=== PATIENT | male | born 1940 | race Hispanic/Latino ===

== ENCOUNTER 2022-06-27 18:02 | Inpatient (IN) | payer MEDICARE ==
[~2022-06-27] VITALS: Ht 167.6 cm; Wt 84.0 kg
[~2022-06-27 18:02] MED LIST: ASPI-556 PO; CARV3.12 PO; FURO20TA4 PO; GABA-529 PO; OMEP40CA21 PO; ROSU20TA31 PO; SPIR100T5 PO
[2022-06-27] MEDS ORDERED: 0.9%NACL 1000ML 2,000 ML IV ONE (19:30)
[2022-06-27] MEDS ORDERED: AZITHROMYCIN 500MG+NS 250ML IVPB SCH (20:00)
[2022-06-27] MEDS ORDERED: CEFTRIAXONE 1G VIAL IVP ONE (20:00)
[2022-06-27 20:02] LABS: BASOPHILS % (AUTO) 0.4 % (0.0-5.0); HEMATOCRIT 44.2 % (42-54); MEAN CORPUSCULAR HEMOGLOBIN 30.7 pg (27.0-33.0); MEAN CORPUSCULAR HGB CONC 33.5 g/dL (32.0-36.0); MEAN CORPUSCULAR VOLUME 91.7 fL (79-99); MONOCYTES % (AUTO) 7.4 % (3.0-13.0); NEUTROPHILS % (AUTO) 86.2 % (40.0-77.0); PLATELET COUNT (AUTO) 81 K/uL (130-400); RED BLOOD CELL COUNT(AUTO) 4.82 MIL/uL (4.50-6.20); RED CELL DISTRIBUTION WIDTH 14.6 % (11.0-15.5); WHITE BLOOD COUNT (AUTO) 28.6 K/uL (4.8-10.8)
[2022-06-27 20:05] LABS: APPEARANCE,URINE CLOUDY (CLEAR); BILIRUBIN,URINE LARGE mg/dL (NEGATIVE); COLOR,URINE RED (YELLOW); GLUCOSE, URINE (UA) 100 mg/dL (NEGATIVE); KETONES,URINE 15 mg/dL (NEGATIVE); LEUKOCYTE ESTERASE ,URINE MODERATE Leu/uL (NEGATIVE); NITRATE,URINE POSITIVE (NEGATIVE); OCCULT BLOOD,URINE MODERATE (NEGATIVE); PROTEIN,URINE 100 mg/dL (NEGATIVE)
[2022-06-27 20:12] LABS: CREATININE 1.9 mg/dL (0.5-1.5); POTASSIUM 4.5 mmol/L (3.5-5.1)
[2022-06-27 20:22] LABS: ALBUMIN 2.6 g/dL (3.5-5.0); TOTAL PROTEIN, SERUM 5.9 g/dL (6.0-8.3)
[2022-06-27 20:41] LABS: BACTERIA,URINE Moderate /HPF (None Seen); MUCUS,URINE Few LPF (None Seen); SQUAMOUS EPITHELIAL CELL,UR Few /HPF (0-2); TRANSITIONAL EPI CELLS,URINE Few /HPF (None Seen); WBC,URINE 51-100 /HPF (0-1)
[2022-06-27] MEDS ORDERED: ASPIRIN 325MG TAB ONE (21:46)
[2022-06-27] MEDS ORDERED: DOXYCYCLINE 100MG+NS 250ML 250 ML IV ONE (21:49)
[2022-06-27] MEDS: 0.9%NACL 1000ML 1,000 ML IV SCH (22:00)
[2022-06-27] MEDS ORDERED: ENOXAPARIN SODIUM 80 MG/0.8 ML SQ SCH (22:00)
[2022-06-27] MEDS ORDERED: MORPHINE 2 MG SYG IVP PRN (22:00)
[2022-06-28] VITALS (10 sets, daily range): BP systolic 95–132; BP diastolic 50–74
[2022-06-28] MEDS ORDERED: ACETAMINOPHEN 325 MG TAB PO PRN ×2 (04:30)
[2022-06-28] MEDS ORDERED: ONDANSETRON 4MG INJ IVP PRN (04:30)
[2022-06-28] MEDS: 0.9%NACL 1000ML 1,000 ML IV SCH ×2 (06:00→15:21)
[2022-06-28] MEDS: INSULIN HUMULIN R 100 UNIT/ML 3ML SQ SCH ×4 (07:30→20:14)
[2022-06-28] MEDS ORDERED: ASPIRIN 325MG EC TAB PO SCH (09:00)
[2022-06-28] MEDS ORDERED: ASPIRIN 81 MG EC TAB PO SCH (09:00)
[2022-06-28 09:11] LABS: BASOPHILS % (AUTO) 0.4 % (0.0-5.0); HEMATOCRIT 41.7 % (42-54); LYMPHOCYTES % (AUTO) 4.6 % (21.0-51.0); MEAN CORPUSCULAR HEMOGLOBIN 30.8 pg (27.0-33.0); MEAN CORPUSCULAR HGB CONC 33.6 g/dL (32.0-36.0); MEAN CORPUSCULAR VOLUME 91.9 fL (79-99); MONOCYTES % (AUTO) 4.5 % (3.0-13.0); NEUTROPHILS % (AUTO) 89.7 % (40.0-77.0); PLATELET COUNT (AUTO) 56 K/uL (130-400); RED BLOOD CELL COUNT(AUTO) 4.54 MIL/uL (4.50-6.20); RED CELL DISTRIBUTION WIDTH 14.8 % (11.0-15.5); WHITE BLOOD COUNT (AUTO) 19.5 K/uL (4.8-10.8)
[2022-06-28 09:52] LABS: B-TYPE NATRIURETIC PEPTIDE 257 pg/mL (0-100)
[2022-06-28] MEDS: FAMOTIDINE 20MG TAB PO SCH (10:03)
[2022-06-28] MEDS: DOXYCYCLINE 100MG+NS 250ML IV SCH ×2 (10:03→21:32)
[2022-06-28 10:10] LABS: ALBUMIN 2.3 g/dL (3.5-5.0); CREATININE 1.5 mg/dL (0.5-1.5); MAGNESIUM 1.6 mg/dL (1.80-2.40); PHOSPHORUS 2.7 mg/dL (2.5-4.9); POTASSIUM 4.1 mmol/L (3.5-5.1); THYROID STIMULATING HORMONE 1.08 uIU/mL (0.36-3.74); TOTAL PROTEIN, SERUM 5.4 g/dL (6.0-8.3)
[2022-06-28] MEDS ORDERED: LIDOCAINE HCL-MPF 1% 2ML VIAL IV PRN (11:00)
[2022-06-28] MEDS ORDERED: POTASSIUM CHLORIDE 20MEQ/100ML 100 ML IV PRN (11:00)
[2022-06-28] MEDS ORDERED: KCL 20 MEQ ERTAB PO PRN (11:00)
[2022-06-28] MEDS ORDERED: POTASSIUM CHLORIDE 10MEQ/100ML 10 MEQ/100 ML ML IV PRN (11:00)
[2022-06-28] MEDS ORDERED: POTASSIUM CHLORIDE 10 MEQ/NS 50ML IV PRN ×2 (11:30)
[2022-06-28] MEDS ORDERED: POTASSIUM CHLORIDE 10MEQ/100ML 100 ML IV SCH (11:30)
[2022-06-28] MEDS: MAGNESIUM 2GM PREMIX 50ML 50 ML IV PRN (14:50)
[2022-06-28] MEDS: CEFTRIAXONE 1G VIAL IVP SCH (21:32)
[2022-06-29] VITALS (7 sets, daily range): BP systolic 102–133; BP diastolic 58–74
[2022-06-29] MEDS: 0.9%NACL 1000ML 1,000 ML IV SCH (03:58)
[2022-06-29 04:21] LABS: BASOPHILS % (AUTO) 0.3 % (0.0-5.0); EOSINOPHILS % (AUTO) 0.7 % (0.0-8.0); HEMATOCRIT 38.6 % (42-54); LYMPHOCYTES % (AUTO) 7.9 % (21.0-51.0); MEAN CORPUSCULAR HEMOGLOBIN 30.5 pg (27.0-33.0); MEAN CORPUSCULAR HGB CONC 33.4 g/dL (32.0-36.0); MEAN CORPUSCULAR VOLUME 91.3 fL (79-99); MONOCYTES % (AUTO) 6.9 % (3.0-13.0); NEUTROPHILS % (AUTO) 83.4 % (40.0-77.0); PLATELET COUNT (AUTO) 55 K/uL (130-400); RED BLOOD CELL COUNT(AUTO) 4.23 MIL/uL (4.50-6.20); RED CELL DISTRIBUTION WIDTH 14.9 % (11.0-15.5); WHITE BLOOD COUNT (AUTO) 11.9 K/uL (4.8-10.8)
[2022-06-29 04:37] LABS: CREATININE 0.9 mg/dL (0.5-1.5); MAGNESIUM 1.7 mg/dL (1.80-2.40); POTASSIUM 3.3 mmol/L (3.5-5.1); TOTAL PROTEIN, SERUM 4.9 g/dL (6.0-8.3)
[2022-06-29] MEDS: MAGNESIUM 2GM PREMIX 50ML 50 ML IV PRN (05:14)
[2022-06-29] MEDS: POTASSIUM CHLORIDE 10% ELIXIR 20 MEQ/15 ML UDCUP PO PRN (05:14)
[2022-06-29] MEDS: INSULIN HUMULIN R 100 UNIT/ML 3ML SQ SCH ×4 (07:30→20:07)
[2022-06-29] MEDS: CARVEDILOL 3.125 MG TABLET PO SCH ×2 (08:46→21:08)
[2022-06-29] MEDS: FAMOTIDINE 20MG TAB PO SCH (08:46)
[2022-06-29] MEDS: DOXYCYCLINE 100MG+NS 250ML IV SCH ×2 (08:47→21:08)
[2022-06-29] MEDS: ARTIFICAL TEARS SOL 15 ML OU SCH ×2 (16:07→21:16)
[2022-06-29] MEDS: CEFTRIAXONE 1G VIAL IVP SCH (21:08)
[2022-06-29] MEDS: NYSTATIN 15 GM OINT TP SCH (21:08)
[2022-06-30 04:35] LABS: BASOPHILS % (AUTO) 0.4 % (0.0-5.0); EOSINOPHILS % (AUTO) 3.6 % (0.0-8.0); HEMATOCRIT 37.3 % (42-54); LYMPHOCYTES % (AUTO) 11.7 % (21.0-51.0); MEAN CORPUSCULAR HEMOGLOBIN 30.6 pg (27.0-33.0); MEAN CORPUSCULAR VOLUME 92.8 fL (79-99); MONOCYTES % (AUTO) 7.8 % (3.0-13.0); NEUTROPHILS % (AUTO) 75.8 % (40.0-77.0); PLATELET COUNT (AUTO) 54 K/uL (130-400); RED BLOOD CELL COUNT(AUTO) 4.02 MIL/uL (4.50-6.20); WHITE BLOOD COUNT (AUTO) 9.1 K/uL (4.8-10.8)
[2022-06-30 04:45] VITALS: BP 110/58
[2022-06-30 04:50] LABS: ALBUMIN 1.9 g/dL (3.5-5.0); CREATININE 0.9 mg/dL (0.5-1.5); POTASSIUM 3.6 mmol/L (3.5-5.1); TOTAL PROTEIN, SERUM 4.6 g/dL (6.0-8.3)
[2022-06-30] MEDS: INSULIN HUMULIN R 100 UNIT/ML 3ML SQ SCH ×4 (05:02→21:00)
[2022-06-30] MEDS: POTASSIUM CHLORIDE 10% ELIXIR 20 MEQ/15 ML UDCUP PO PRN (05:39)
[2022-06-30 07:00] VITALS: BP 142/77
[2022-06-30] MEDS: DOXYCYCLINE 100MG+NS 250ML IV SCH ×2 (10:25→21:38)
[2022-06-30] MEDS: FAMOTIDINE 20MG TAB PO SCH (10:25)
[2022-06-30] MEDS: CARVEDILOL 3.125 MG TABLET PO SCH ×2 (10:25→21:36)
[2022-06-30] MEDS: ARTIFICAL TEARS SOL 15 ML OU SCH ×3 (10:26→21:36)
[2022-06-30] MEDS: NYSTATIN 15 GM OINT TP SCH ×3 (10:26→21:37)
[2022-06-30 11:00] VITALS: BP 130/72
[2022-06-30 16:00] VITALS: BP 144/72
[2022-06-30 19:09] VITALS: BP 139/82
[2022-06-30] MEDS: CEFTRIAXONE 1G VIAL IVP SCH (21:37)
[2022-07-01 00:09] VITALS: BP_SYST 103; BP_SYST 115; BP_DIAS 58; BP_DIAS 64
[2022-07-01 03:48] LABS: BASOPHILS % (AUTO) 0.5 % (0.0-5.0); EOSINOPHILS % (AUTO) 3.5 % (0.0-8.0); HEMATOCRIT 38.4 % (42-54); LYMPHOCYTES % (AUTO) 14.2 % (21.0-51.0); MEAN CORPUSCULAR HEMOGLOBIN 30.9 pg (27.0-33.0); MEAN CORPUSCULAR HGB CONC 33.6 g/dL (32.0-36.0); MEAN CORPUSCULAR VOLUME 92.1 fL (79-99); MONOCYTES % (AUTO) 9.2 % (3.0-13.0); NEUTROPHILS % (AUTO) 72.1 % (40.0-77.0); PLATELET COUNT (AUTO) 68 K/uL (130-400); RED BLOOD CELL COUNT(AUTO) 4.17 MIL/uL (4.50-6.20); WHITE BLOOD COUNT (AUTO) 8.3 K/uL (4.8-10.8)
[2022-07-01 04:05] LABS: ALBUMIN 1.9 g/dL (3.5-5.0); CREATININE 0.9 mg/dL (0.5-1.5); MAGNESIUM 1.6 mg/dL (1.80-2.40); TOTAL PROTEIN, SERUM 4.6 g/dL (6.0-8.3)
[2022-07-01] MEDS: INSULIN HUMULIN R 100 UNIT/ML 3ML SQ SCH ×4 (06:26→21:00)
[2022-07-01 07:00] VITALS: BP 142/77
[2022-07-01] MEDS: FAMOTIDINE 20MG TAB PO SCH (08:45)
[2022-07-01] MEDS: CARVEDILOL 3.125 MG TABLET PO SCH ×2 (08:46→21:20)
[2022-07-01] MEDS: DOXYCYCLINE 100MG+NS 250ML IV SCH ×2 (08:46→21:21)
[2022-07-01] MEDS: ARTIFICAL TEARS SOL 15 ML OU SCH ×3 (08:49→21:22)
[2022-07-01] MEDS: NYSTATIN 15 GM OINT TP SCH ×3 (08:50→21:22)
[2022-07-01 11:00] VITALS: BP 146/84
[2022-07-01 16:00] VITALS: BP 153/83
[2022-07-01 19:09] VITALS: BP 153/84
[2022-07-01] MEDS: ATORVASTATIN 20 MG TABLET PO SCH (21:15)
[2022-07-01] MEDS: CEFTRIAXONE 1G VIAL IVP SCH (21:15)
[2022-07-02 00:09] VITALS: BP 120/72
[2022-07-02 03:09] VITALS: BP 104/70
[2022-07-02] MEDS: INSULIN HUMULIN R 100 UNIT/ML 3ML SQ SCH ×4 (06:44→21:00)
[2022-07-02 08:00] VITALS: BP 151/71
[2022-07-02] MEDS: FAMOTIDINE 20MG TAB PO SCH (08:45)
[2022-07-02] MEDS: CARVEDILOL 3.125 MG TABLET PO SCH ×2 (08:45→20:17)
[2022-07-02] MEDS: DOXYCYCLINE 100MG+NS 250ML IV SCH ×2 (08:45→20:17)
[2022-07-02] MEDS: ARTIFICAL TEARS SOL 15 ML OU SCH ×3 (08:45→20:19)
[2022-07-02] MEDS: NYSTATIN 15 GM OINT TP SCH ×3 (08:54→20:19)
[2022-07-02 11:48] VITALS: BP 141/81
[2022-07-02 16:05] VITALS: BP 144/87
[2022-07-02 19:57] VITALS: BP 148/78
[2022-07-02] MEDS: ATORVASTATIN 20 MG TABLET PO SCH (20:17)
[2022-07-02] MEDS: CEFTRIAXONE 1G VIAL IVP SCH (20:17)
[2022-07-03 00:33] VITALS: BP 121/72
[2022-07-03 04:08] VITALS: BP 118/62
[2022-07-03] MEDS: INSULIN HUMULIN R 100 UNIT/ML 3ML SQ SCH ×4 (06:09→20:33)
[2022-07-03 08:06] VITALS: BP 150/83
[2022-07-03] MEDS: NYSTATIN 15 GM OINT TP SCH ×3 (09:03→20:35)
[2022-07-03] MEDS: CARVEDILOL 3.125 MG TABLET PO SCH ×2 (09:04→20:34)
[2022-07-03] MEDS: ARTIFICAL TEARS SOL 15 ML OU SCH ×3 (09:04→20:35)
[2022-07-03] MEDS: FAMOTIDINE 20MG TAB PO SCH (09:04)
[2022-07-03] MEDS: DOXYCYCLINE 100MG+NS 250ML IV SCH ×2 (09:05→20:34)
[2022-07-03 11:50] VITALS: BP 143/84
[2022-07-03 16:00] VITALS: BP 145/75
[2022-07-03] MEDS: CEFTRIAXONE 1G VIAL IVP SCH (20:34)
[2022-07-03] MEDS: ATORVASTATIN 20 MG TABLET PO SCH (20:34)
[2022-07-03 20:45] VITALS: BP 149/84
[2022-07-04 00:16] VITALS: BP 111/64
[2022-07-04 03:48] VITALS: BP 138/80
[2022-07-04] MEDS: INSULIN HUMULIN R 100 UNIT/ML 3ML SQ SCH ×2 (06:50→11:30)
[2022-07-04 08:00] VITALS: BP 143/81
[2022-07-04] MEDS: DOXYCYCLINE 100MG+NS 250ML IV SCH (08:39)
[2022-07-04] MEDS: ARTIFICAL TEARS SOL 15 ML OU SCH ×2 (08:39→14:33)
[2022-07-04] MEDS: FAMOTIDINE 20MG TAB PO SCH (08:40)
[2022-07-04] MEDS: NYSTATIN 15 GM OINT TP SCH ×2 (08:40→14:33)
[2022-07-04 08:41] VITALS: BP 143/81
[2022-07-04] MEDS: CARVEDILOL 3.125 MG TABLET PO SCH (08:41)
[2022-07-04] MEDS ORDERED: IPRATROPIUM/ALBUTEROL SULFATE 3 ML SOLUTION IH SCH (12:00)
== END 2022-07-04 17:15 | DRG 871 ==
LOC: EDH 18:02 → EDHIP 21:32 → 2BH 06-28 08:13 → 2DH 06-28 23:29 → 3DH 07-03 17:36 → UNDODISIN 07-04 10:40
PROVIDERS: ADMIT Internal Medicine Infectious Disease; ATTEND Internal Medicine Infectious Disease
DX: A41.50 Gram-negative sepsis, unspecified (principal); I21.4 Non-ST elevation (NSTEMI) myocardial infarction; J18.9 Pneumonia, unspecified organism; R65.21 Severe sepsis with septic shock; L97.919 Non-pressure chronic ulcer of unspecified part of right lower leg with unspecified severity; L97.829 Non-pressure chronic ulcer of other part of left lower leg with unspecified severity; N39.0 Urinary tract infection, site not specified; N17.9 Acute kidney failure, unspecified; I50.30 Unspecified diastolic (congestive) heart failure; M62.82 Rhabdomyolysis; Z20.822 Contact with and (suspected) exposure to COVID-19; I11.0 Hypertensive heart disease with heart failure; D69.6 Thrombocytopenia, unspecified; L89.220 Pressure ulcer of left hip, unstageable; E66.9 Obesity, unspecified; K21.9 Gastro-esophageal reflux disease without esophagitis; E11.51 Type 2 diabetes mellitus with diabetic peripheral angiopathy without gangrene; E78.00 Pure hypercholesterolemia, unspecified; I25.10 Atherosclerotic heart disease of native coronary artery without angina pectoris; I35.1 Nonrheumatic aortic (valve) insufficiency; L30.4 Erythema intertrigo; N50.89 Other specified disorders of the male genital organs; Z74.01 Bed confinement status; Z79.899 Other long term (current) drug therapy; Z83.3 Family history of diabetes mellitus; Z99.3 Dependence on wheelchair; Z68.29 Body mass index [BMI] 29.0-29.9, adult
CPT/HCPCS: 36415; 71045; 76705; 80053; 80069; 81001; 82550; 82948; 83605; 83735; 83874; 83880; 84443; 84484; 85025; 85378; 87040; 87077; 87088; 87186; 87635; 87804; 93005; 93306; 93356; 93970; 94640; 94664; 97039; 99291; C9803; G0378; J0456; J0696; J1650; J1815; J2405; J3475; J3490; J7030

== ENCOUNTER → 2022-09-04 | Outpatient (CLI) | payer MEDICARE ==
[~2022-09-04] MED LIST changes: -ASPI-556 PO; -FURO20TA4 PO; -GABA-529 PO; -OMEP40CA21 PO; -ROSU20TA31 PO; -SPIR100T5 PO
[2022-09-04 12:38] LABS: BASOPHILS % (AUTO) 0.2 % (0.0-5.0); EOSINOPHILS % (AUTO) 0.1 % (0.0-8.0); HEMATOCRIT 43.5 % (42-54); LYMPHOCYTES % (AUTO) 10.2 % (21.0-51.0); MEAN CORPUSCULAR HEMOGLOBIN 29.8 pg (27.0-33.0); MEAN CORPUSCULAR HGB CONC 32.6 g/dL (32.0-36.0); MEAN CORPUSCULAR VOLUME 91.2 fL (79-99); MONOCYTES % (AUTO) 5.7 % (3.0-13.0); NEUTROPHILS % (AUTO) 83.5 % (40.0-77.0); PLATELET COUNT (AUTO) 85 K/uL (130-400); RED BLOOD CELL COUNT(AUTO) 4.77 MIL/uL (4.50-6.20); RED CELL DISTRIBUTION WIDTH 14.3 % (11.0-15.5)
[2022-09-04 12:49] LABS: ALBUMIN 2.9 g/dL (3.5-5.0); BILIRUBIN,DIRECT 0.6 mg/dL (0.0-0.3); CREATININE 0.9 mg/dL (0.5-1.5); POTASSIUM 3.9 mmol/L (3.5-5.1); TOTAL PROTEIN, SERUM 6.5 g/dL (6.0-8.3)
== END | disposition home or self-care (01) ==
LOC: LAB 11:57
PROVIDERS: ATTEND Internal Medicine
DX: A41.9 Sepsis, unspecified organism (principal); I21.4 Non-ST elevation (NSTEMI) myocardial infarction
CPT/HCPCS: 36415; 80048; 80061; 80076; 85025

== ENCOUNTER 2025-03-17 19:29 | Emergency (ER) | payer MEDICARE ==
[~2025-03-17] VITALS: Ht 167.6 cm; Wt 70.3 kg
[~2025-03-17 19:29] MED LIST changes: +ASPI-1005 PO; -CARV3.12 PO; +DORZ10DR10 OP; +FURO20TA4 PO; +LOSA1TAB42 PO; +OMEP40CA21 PO; +ROSU40TA88 PO
--- NOTE | 2025-03-17 19:54 | ERN ---
ED Note History of Present Illness Stated Complaint: R HIP PAIN S/P FALL, -LOC, -ANTICOAGULANTS Chief Complaint: Hip Pain/Injury Time Seen by MD: 19:32 Dictation: This is an 85-year-old male who was brought in to the emergency room via EMS by patient's daughter and son. Apparently for the past 35 years he has been in a wheelchair and he can transfer himself to the bed and basically moves around in the house using the wheelchair. This is a motorized wheelchair. lately he has had many falls and apparently this afternoon he had a fall when he tried to transfer himself from the wheelchair to the toilet he did not sustain any head injury he did not lose consciousness it was mostly sliding and sitting on his rear. The family noted that he was unable to bear the weight due to right hip pain and they brought him to the ER for further evaluation. As I described above he has been disabled and bed ridden and by 3:00 p.m. he is usually supine in bed. 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 He has a chronic issue with constipation as well as due to his disability he does wear a diaper. He lives at home with his and the children check on them Temperature 98.9 pulse 70 respirations 16 blood pressure 147/79 with a pulse oximetry of 94% on room air Known history of hypertension, hyperlipidemia, history of an GA, congestive heart failure, umbilical hernia Allergies: Coded Allergies: No Known Drug Allergies (Verified Allergy, Severe, 11/09/16) Home Meds Active Scripts Tramadol Hcl (Tramadol HCl) 50 Mg Tablet, 50 MG PO BID for hip and back pain for 7 Days, #14 TAB 0 Refills Prov:JOHNY CAN MD 03/17/25 Reported Medications Dorzolamide HCl/Timolol Maleat (Dorzolamide-Timolol Eye Drops) 10 Ml Drops, 10 ML OP DAILY, DROP 11/06/22 Losartan/Hydrochlorothiazide (Losartan-Hctz 100-12.5 mg Tab) 1 Each Tablet, 1 EACH PO DAILY, TAB 11/06/22 Aspirin (ASPIRIN 81MG CHEW TAB) 81 Mg Tab.chew, 81 MG PO DAILY, TAB.CHEW 09/11/22 Furosemide (Furosemide) 20 Mg Tablet, 20 MG PO DAILY, TAB 09/11/22 Rosuvastatin Calcium (Rosuvastatin Calcium) 40 Mg Tablet, 40 MG PO DAILY, TAB 09/11/22 Omeprazole (Omeprazole) 40 Mg Capsule.dr, 40 MG PO DAILY, CAP 09/11/22 Past Medical History Past Medical History: CHF, High Cholesterol, Hypertension, GA, Other Additional Past Medical Hx: UMBILICAL HERNIA Surgical History: Other Surgical History Other: ABDOMEN SURERY Social History: Lives with family, Other RN Note Reviewed/Agreed w/PFSH: Yes Review of System Dictation Constitutional: Negative for fever,chills, and weight loss Eyes: Negative for injury, pain,redness, and discharge ENT: Negative for injury,pain or swelling Cardiovascular: Negative for chest pain, palpitations, and edema Respiratory: Negative for shortness of breath, cough, and wheezing, Abdomen/GI: Negative for abdominal pain, nausea, vomiting, diarrhea, and constipation Back: Negative for injury and pain : Negative for injury, bleeding and discharge MS/Extremity: Negative for injury and deformity positive for right hip pain and lower back pain Skin: Negative for rash, and discoloration Neuro: Negative for headache, weakness, numbness, tingling, and seizure Psych: Negative for suicide ideation, homicidal ideation, and hallucinations Initial Vital Sign VS Vital Signs Date Time Temp Pulse Resp B/P (MAP) Pulse Ox O2 Delivery O2 Flow Rate FiO2 03/17/25 19:30 98.4 70 16 147/79 94 Room Air 0 03/17/25 19:46 21 Physical Exam Dictation General: awake, alert, NAD Head/Face: Normocephalic, atraumatic Eyes: PERRL, EOMI, vision at baseline ENT: oral cavity clear, TMs clear, no signs of infection Neck: Trachea midline, supple, no nuchal rigidity Cardiovascular: RRR, normal S1/S2, No MRGs, no JVD Respiratory: CTAB, no respiratory distress, No rales or wheezes Abdomen: Soft, non-tender, non-distended, normal bowel sounds, no guarding or rebound. Skin: Warm, dry, normal turgor, no rash very small superficial skin breakdown bilaterally at the ischial tuberosity sites. Tiny ulcers also on scrotum MS/Extremity: Pulses equal, no cyanosis, neurovascular intact, lower extremity strength is 3/5-this is chronic no external rotation or obvious deformity of the joint noted Neuro: COAx4, GCS 15, strength 5/5, CN 2-12 intact, normal cerebellar exam, Psych: Normal behavior, mood, and affect normal Extremities-trace edema without any palpable cords, Homans sign is negative severe hyperpigmentation of the right lower extremity Skin Results (Laboratory/Radiology) Laboratory/Radiology Laboratory Tests Test 03/17/25 20:14 White Blood Count 6.0 K/uL (4.8-10.8) Red Blood Count 4.68 MIL/uL (4.50-6.20) Hemoglobin 14.4 g/dL (14.0-18.0) Hematocrit 43.9 % (42-54) Mean Corpuscular Volume 93.8 fL (79-99) Mean Corpuscular Hemoglobin 30.8 pg (27.0-33.0) Mean Corpuscular Hemoglobin Concent 32.8 g/dL (32.0-36.0) Red Cell Distribution Width 15.1 % (11.0-15.5) Platelet Count 93 K/uL (130-400) L Mean Platelet Volume 12.2 fL (7.5-10.5) H Immature Granulocyte % (Auto) 0.3 % (0-1) Neutrophils (%) (Auto) 68.1 % (40.0-77.0) Lymphocytes (%) (Auto) 20.4 % (21.0-51.0) L Monocytes (%) (Auto) 8.0 % (3.0-13.0) Eosinophils (%) (Auto) 2.5 % (0.0-8.0) Basophils (%) (Auto) 0.7 % (0.0-5.0) Neutrophils # (Auto) 4.1 K/uL (1.8-7.7) Lymphocytes # (Auto) 1.2 K/uL (1.0-4.8) Monocytes # (Auto) 0.5 K/uL (0.1-1.0) Eosinophils # (Auto) 0.15 K/uL (0.00-0.70) Basophils # (Auto) 0.04 K/uL (0.00-0.20) Absolute Immature Granulocyte (auto 0.02 K/uL (0-1) Nucleated Red Blood Cells 0.0 % (0.0-0.19) Sodium Level 143 mmol/L (136-145) Potassium Level 4.1 mmol/L (3.5-5.1) Chloride Level 108 mmol/L (101-111) Carbon Dioxide Level 30 mmol/L (21-32) Blood Urea Nitrogen 19 mg/dL (7-18) H Creatinine 0.8 mg/dL (0.5-1.3) Glomerular Filtration Rate Calc 87 mL/min (>90) Random Glucose 106 mg/dL (70-105) H Total Calcium 8.4 mg/dL (8.5-10.1) L Total Creatine Kinase 19 U/L (21-232) #L Troponin I High Sensitivity 7.4 ng/L (4-75) Labs Reviewed?: Yes X-RAY Comment: REASON: fall unable to bear wt ORDERING PHYSICIAN: JOHNY CAN MD PROCEDURE: HIP U 2V R - HIP UNILAT 2-3VW RIGHT HIP UNILAT 2-3VW RIGHT HISTORY: Status post fall COMPARISON: None TECHNIQUE: 3 images of the right hip were obtained. FINDINGS: There is no acute displaced fracture or dislocation. Right hip joint space narrowing is seen. Degenerative changes are seen. IMPRESSION: 1. Findings as described above. DICTATED BY: TANI SWEENEY MD DATE: 03/17/252025 ELECTRONICALLY SIGNED BY: TANI SWEENEY MD DATE: 03/17/25 203 ED Course ED Course Orders Procedure Category Date Status Time Cardiac Panel LAB 03/17/25 Complete 19:45 Cbc With Differential LAB 03/17/25 Complete 19:45 Basic Metabolic Panel LAB 03/17/25 Complete 19:45 Hip Unilat 2-3vw Right RAD 03/17/25 Resulted 19:45 Acetaminophen 325 Tab PHA 03/17/25 Complete (Tylenol 325mg Tab 21:00 Morphine 2mg Syg PHA 03/17/25 Complete (Morphine 2mg Syg) 21:00 Current Medications Medications (Trade) Dose Ordered Sig/Brandi Route PRN Reason Start Time Stop Time Status Last Admin Dose Admin Acetaminophen (TYLenol 325MG TAB) 650 mg ONCE ONCE PO 03/17/25 21:00 03/17/25 21:01 DC Morphine Sulfate (morPHINE 2MG SYG) 2 mg ONCE ONCE IVP 03/17/25 21:00 03/17/25 21:01 DC 03/17/25 22:03 Vital Signs Date Time Temp Pulse Resp B/P (MAP) Pulse Ox O2 Delivery O2 Flow Rate FiO2 03/18/25 00:02 98.4 70 18 146/74 98 Room Air* 0 21 03/17/25 22:37 98.2 67 18 150/85 98 Room Air* 0 21 03/17/25 19:46 67 18 148/81 99 Room Air* 0 03/17/25 19:30 98.4 70 16 147/79 94 Room Air 0 We will perform diagnostic labs, advanced imaging and administer medications according to the patient's complaint. Once the results are available, will review and personally interpreted the labs to rule out any acute life-threatenin g emergency the trach require immediate intervention and treatment. I will then re-evaluate the patient after treatment and diagnostic exams have return to determine whether the patient requires any further testing, can safely be discharged home or need further admission to hospital for additional treatment and evaluation. 8:30 p.m. Reviewed the labs-CBC is with a normal limits BNP 7 relatively normal BUN and creatinine are 19 and 0.8 8:53 p.m. hip x-rays reviewed-narrowing of the right hip joint but no obvious fracture was visible. 9:14 p.m. patient's son Andre came by to visit the patient. I had a long discussion with the patient both the children about his chronic bedridden state and at this point patient needs more of pain management and comfort as he would not be a candidate for aggressive surgical intervention of back. They indicated that their mother did not want him admitted and a trial of pain medication was given. Also instructed them to apply triple antibiotic cream to the tiny areas of skin breakdown and cushion his wheelchair. I have also given a referral to pain management for his chronic pain. Medical Decision Making MDM MDM: Differential diagnosis: Fracture of the hip, contusion, sprain, severe arthritis, muscle weakness due to disuse Rationale: Tests considered and ordered secondary to shared decision making include: Previous outside records reviewed: Old ER visits. Risk of complication and/or morbidity or mortality of patient management: None Medications-Per medication reconciliation Need for hospitalization: Patient does not meet criteria for hospitalization. Need for emergency major/minor surgery: No There are no social concerns with this patient. Prescription drug management Prescriptions will include symptomatic care Patient's prior external medical records from other ER visits were reviewed by me as indicated. Prior testing and results from previous visits were reviewed. Prior tests were taken into account with medical decision making and resource utilization, independent historian/historians were used to obtain complete medical history. I independently interpreted the test that were performed, results were reviewed by me and considered findings on radiology if ordered. Medical management and examination interpretation discussions were had by me with other qualified healthcare professionals as indicated for the patient's care. Problem List Problem List: (1) Right hip pain (2) Degenerative joint disease of right hip DX & DISP Disposition: Discharge Departure Impression: Primary Impression: Right hip pain Additional Impression: Degenerative joint disease of right hip Condition: Stable Scripts Tramadol Hcl (Tramadol HCl) 50 Mg Tablet 50 MG PO BID for hip and back pain for 7 Days, #14 TAB 0 Refills Prov: JOHNY CAN MD 03/17/25 Additional Instructions: Patient and the caregiver have been informed of all the diagnostic tests and the imaging conducted during the today's visit to the emergency room and has verbalized understanding of the results I have personally reviewed and interpreted all diagnostic exams performed here in the ER today as well as the vital signs documented by the nursing staff. The patient is now being discharged to home and should follow up with the primary care physician or the specialist as directed by the ER staff. Follow-up with primary care provider in 1 to 2 days. Take medications as directed here in the emergency room. Okay to continue home medications unless otherwise discussed during your visit in the emergency room today. Return to your nearest emergency room if symptoms worsen or if there is no improvement. Call 911 if you need immediate assistance. Take Tylenol or Motrin [id number] as needed and if no contraindications are present. Increase oral hydration. A wound culture or urine culture was ordered here in the emergency room department please follow-up with primary care provider and advise them to get repeat ports from our facility. If you had any Yvon wrap/splints that were applied here, please do not remove them until you see your primary care or specialty. Referrals: JASMIN LIZ MD (PCP) LACHELLE SOTO MD, ANURADHA R MD Mar 17, 2025 19:54
[2025-03-17 20:26] LABS: BASOPHILS # (AUTO) 0.04 K/uL (0.00-0.20); BASOPHILS % (AUTO) 0.7 % (0.0-5.0); EOSINOPHILS # (AUTO) 0.15 K/uL (0.00-0.70); EOSINOPHILS % (AUTO) 2.5 % (0.0-8.0); HEMATOCRIT 43.9 % (42-54); IMMATURE GRANULOCYTE ABSOLUTE 0.02 K/uL (0-1); LYMPHOCYTES # (AUTO) 1.2 K/uL (1.0-4.8); LYMPHOCYTES % (AUTO) 20.4 % (21.0-51.0); MEAN CORPUSCULAR HEMOGLOBIN 30.8 pg (27.0-33.0); MEAN CORPUSCULAR HGB CONC 32.8 g/dL (32.0-36.0); MEAN CORPUSCULAR VOLUME 93.8 fL (79-99); MONOCYTES # (AUTO) 0.5 K/uL (0.1-1.0); NEUTROPHILS # (AUTO) 4.1 K/uL (1.8-7.7); NEUTROPHILS % (AUTO) 68.1 % (40.0-77.0); PLATELET COUNT (AUTO) 93 K/uL (130-400); RED BLOOD CELL COUNT(AUTO) 4.68 MIL/uL (4.50-6.20); RED CELL DISTRIBUTION WIDTH 15.1 % (11.0-15.5)
[2025-03-17 20:30] LABS: CREATININE 0.8 mg/dL (0.5-1.3); POTASSIUM 4.1 mmol/L (3.5-5.1)
--- NOTE | 2025-03-17 20:30 | HMCIMG ---
HIP UNILAT 2-3VW RIGHT HISTORY: Status post fall COMPARISON: None TECHNIQUE: 3 images of the right hip were obtained. FINDINGS: There is no acute displaced fracture or dislocation. Right hip joint space narrowing is seen. Degenerative changes are seen. IMPRESSION: 1. Findings as described above.
[2025-03-17] MEDS ORDERED: acetaMINOPHEN 325 MG TAB PO ONE (21:00)
[2025-03-17] MEDS: morPHINE 2 MG SYG IVP ONE (22:03)
[2025-03-17] MEDS ORDERED: TRAM50TA4 PO (22:10)
--- NOTE | 2025-03-17 22:37 | NUR ---
PATIENT WAITING ON EMS TRANSPORT, FAMILY (DAUGHTER AND SON AT BEDSIDE).
--- NOTE | 2025-03-17 22:46 | NUR ---
[facility] CALLED FOR TRANSPORT.
[2025-03-18 00:02] VITALS: BP 146/74; PULSE 70; RESP 18; TEMP 98.4; O2SAT 98
--- NOTE | 2025-03-18 00:03 | NUR ---
[facility] PRESENT TO TRANSPORT PATIENT HOME, SON AT BEDSIDE.
== END 2025-03-18 00:09 | disposition home or self-care (01) ==
LOC: EDH 19:29
DX: M25.551 Pain in right hip (principal); M16.11 Unilateral primary osteoarthritis, right hip; E78.00 Pure hypercholesterolemia, unspecified; I11.0 Hypertensive heart disease with heart failure; I50.9 Heart failure, unspecified; Z79.82 Long term (current) use of aspirin; Z79.899 Other long term (current) drug therapy
CPT/HCPCS: 99284; 96374; 82550; 84484; 80048; 85025; 36415; 73502; J2270; 99283